=== PATIENT | female | born 1960 | race Hispanic/Latino ===

== ENCOUNTER → 2019-04-24 | Outpatient (CLI) | payer BC ==
[~2019-04-24] MED LIST: GADODIAMIDE 10 MMOL/20 ML VIAL IV ONE
== END | disposition home or self-care (01) ==
LOC: RAH 09:07
PROVIDERS: ATTEND Internal Medicine Gastroenterology
DX: R16.0 Hepatomegaly, not elsewhere classified (principal); K82.8 Other specified diseases of gallbladder
CPT/HCPCS: 74183; A9579

== ENCOUNTER 2019-07-01 08:51 | Day surgery (SDC) | payer BC ==
[2019-07-01 09:31] LABS: BASOPHILS % (AUTO) 0.5 % (0.0-5.0); EOSINOPHILS % (AUTO) 3.5 % (0.0-8.0); HEMATOCRIT 40.9 % (36-48); LYMPHOCYTES % (AUTO) 24.6 % (21.0-51.0); MEAN CORPUSCULAR HEMOGLOBIN 30.5 pg (27.0-33.0); MEAN CORPUSCULAR HGB CONC 34.3 g/dL (32.0-36.0); MEAN CORPUSCULAR VOLUME 88.9 fL (79-99); MONOCYTES % (AUTO) 7.3 % (3.0-13.0); NEUTROPHILS % (AUTO) 64.1 % (40.0-77.0); PLATELET COUNT (AUTO) 161 K/uL (130-400); RED CELL DISTRIBUTION WIDTH 13.6 % (11.0-15.5); WHITE BLOOD COUNT (AUTO) 7.8 K/uL (4.8-10.8)
[2019-07-01 09:41] LABS: CREATININE 0.6 mg/dL (0.5-1.5); POTASSIUM 3.8 mmol/L (3.5-5.1)
[2019-07-01 09:42] LABS: INR 0.99 (0.85-1.15); PARTIAL THROMBOPLASTIN TIME 26.8 SEC (26.3-35.5); PROTHROMBIN TIME 10.4 SEC (9.6-11.6)
[2019-07-01 09:46] LABS: ALBUMIN 3.4 g/dL (3.5-5.0); BILIRUBIN,TOTAL 0.4 mg/dL (0.2-1.0); TOTAL PROTEIN, SERUM 7.6 g/dL (6.0-8.3)
[2019-07-01] MEDS ORDERED: FENTANYL CITRATE PF 50 MCG/1 ML 2ML VIAL ONE (10:01)
[2019-07-01] MEDS ORDERED: MIDAZOLAM HCL 1 MG/ML 2ML VIAL ONE (10:01)
[2019-07-01] MEDS ORDERED: SODIUM CHLORIDE 0.9% 1000ML 1,000 ML IV ONE (10:09)
--- NOTE | 2019-07-01 10:53 | NUR ---
U/S GUIDED BIOPSY OF LIVER PROCEDURE PERFORMED BY DR. LAZO. PUNCTURE SITE EPIGASTRIC REGION. PATIENT TOLERATED PROCEDURE WELL. SPECIMEN X 3 COLLECTED. END OF PROCEDURE AT 1058. FLOSEAL INJECTED TO SITE WHILE BIOPSY NEEDLE REMOVED AND DRESSING APPLIED. NO BLEEDING NOTED. CALLED REPORT TO [facility] DAY PATENT NURSE. PT TRANSFERRED TO DAYPATIENT VIA STRETCHER. PT STABLE, AAO X 3, WITH NO C/O PAIN.
--- NOTE | 2019-07-01 11:25 | NUR ---
PATIENT RETURNED PATIENT BROUGHT BACK TO DAY PATIENT FROM RADIOLOGY. BANDAID TO EPIGASTRIC AREA IS DRY AND INTACT. AAOX3, RESPIRATIONS UNLABORED, VITAL SIGNS STABLE, PATIENT C/O DISCOMFORT TO AREA WHERE BIOPSY/PUNCTURE WAS DONE. SIDERAILS UP X2, BED IN LOWEST POSITION, CALL OSORIO IN REACH. SPOUSE AT BEDSIDE.
--- NOTE | 2019-07-01 13:25 | NUR ---
CALL DR. BACK PT. C/O OF PAIN TO UPPER GASTRIC AREA. ORDER IS TO GIVE 2 TYLENOL #3 ONCE , PO. PATIENT LEVEL OF PAIN IS 8 OUT 10 ON PAIN SCALE.
[2019-07-01] MEDS ORDERED: ACETAMINOPHEN-CODEINE 300/30MG TAB ONE (13:34)
--- NOTE | 2019-07-01 13:35 | NUR ---
DR. HURTADO CAME TO EVALUATE PATIENT. NO FURTHER ORDERS AT THIS TIME.
[2019-07-01 14:30] VITALS: BP 146/72
--- NOTE | 2019-07-01 14:38 | NUR ---
PT LEFT VIA WHEELCHAIR IN PVT CAR WITH . PT. STABLE NO COMPLICATION UPON D/C, D/C INSTRUCTIONS GIVEN TO
[2019-07-01] MEDS ORDERED: ACETAMINOPHEN-CODEINE 300/30MG TAB PO ONE (14:50)
== END 2019-07-01 14:40 ==
LOC: DAH 08:51
PROVIDERS: ATTEND Internal Medicine Gastroenterology
DX: R94.5 Abnormal results of liver function studies (principal); K75.81 Nonalcoholic steatohepatitis (NASH); K74.69 Other cirrhosis of liver; K21.0 Gastro-esophageal reflux disease with esophagitis; I10 Essential (primary) hypertension; E11.9 Type 2 diabetes mellitus without complications; E78.5 Hyperlipidemia, unspecified; E66.9 Obesity, unspecified; Z68.35 Body mass index [BMI] 35.0-35.9, adult; Z72.89 Other problems related to lifestyle; Z79.84 Long term (current) use of oral hypoglycemic drugs; Z79.899 Other long term (current) drug therapy; Z98.890 Other specified postprocedural states
CPT/HCPCS: 36415; 47000; 76942; 80053; 82948 ×2; 85025; 85610; 85730; 88307; A4215 ×3; A4221; A4222; A4223; A4663; C2615; J2250; J3010; J7030; 99152; 99153

== ENCOUNTER 2019-07-07 12:33 | Emergency (ER) | payer BC ==
[2019-07-07 13:07] LABS: BASOPHILS % (AUTO) 0.3 % (0.0-5.0); EOSINOPHILS % (AUTO) 3.9 % (0.0-8.0); HEMATOCRIT 40.2 % (36-48); LYMPHOCYTES % (AUTO) 21.1 % (21.0-51.0); MEAN CORPUSCULAR HEMOGLOBIN 30.5 pg (27.0-33.0); MEAN CORPUSCULAR HGB CONC 34.3 g/dL (32.0-36.0); MEAN CORPUSCULAR VOLUME 88.8 fL (79-99); NEUTROPHILS % (AUTO) 68.7 % (40.0-77.0); PLATELET COUNT (AUTO) 180 K/uL (130-400); RED BLOOD CELL COUNT(AUTO) 4.53 MIL/uL (4.00-5.50); RED CELL DISTRIBUTION WIDTH 13.9 % (11.0-15.5); WHITE BLOOD COUNT (AUTO) 9.1 K/uL (4.8-10.8)
[2019-07-07 13:21] LABS: INR 0.97 (0.85-1.15); PARTIAL THROMBOPLASTIN TIME 27.4 SEC (26.3-35.5); PROTHROMBIN TIME 10.2 SEC (9.6-11.6)
[2019-07-07 14:36] LABS: APPEARANCE,URINE Clear (CLEAR); BILIRUBIN,URINE Negative (NEGATIVE); COLOR,URINE Yellow (YELLOW); GLUCOSE, URINE (UA) >=1000 mg/dL (NEGATIVE); KETONES,URINE Negative (NEGATIVE); LEUKOCYTE ESTERASE ,URINE Negative (NEGATIVE); NITRATE,URINE Negative (NEGATIVE); OCCULT BLOOD,URINE Negative (NEGATIVE); PROTEIN,URINE Negative (NEGATIVE)
[2019-07-07 14:46] LABS: CREATININE 0.6 mg/dL (0.5-1.5); POTASSIUM 3.9 mmol/L (3.5-5.1)
[2019-07-07 14:52] LABS: ALBUMIN 3.6 g/dL (3.5-5.0); BILIRUBIN,TOTAL 0.5 mg/dL (0.2-1.0); TOTAL PROTEIN, SERUM 7.4 g/dL (6.0-8.3)
[2019-07-07] MEDS ORDERED: TRAMADOL HCL 50 MG TABLET ONE (15:38)
[2019-07-07] MEDS ORDERED: SODIUM CHLORIDE 0.9% 1000ML 1,000 ML IV ONE (15:38)
== END 2019-07-07 17:06 | disposition home or self-care (01) ==
LOC: EDH 12:33
DX: E11.65 Type 2 diabetes mellitus with hyperglycemia (principal); R10.10 Upper abdominal pain, unspecified; I10 Essential (primary) hypertension; Z98.890 Other specified postprocedural states
CPT/HCPCS: 36415; 71045; 74176; 80053; 81003; 82150; 82550; 83690; 84484; 85025; 85610; 85730; 93005; 96360; 99285; J7030

== ENCOUNTER → 2021-12-21 | Outpatient (CLI) | payer BC | END | disposition home or self-care (01) | LOC: RAH 10:04 | PROVIDERS: ATTEND Family Medicine | DX: K80.20 Calculus of gallbladder without cholecystitis without obstruction (principal); R16.0 Hepatomegaly, not elsewhere classified; R94.5 Abnormal results of liver function studies | CPT/HCPCS: 76700 ==

== ENCOUNTER → 2022-01-11 | Outpatient (CLI) | payer BC | END | disposition home or self-care (01) | LOC: RAH 07:31 | PROVIDERS: ATTEND Internal Medicine Gastroenterology | DX: R11.2 Nausea with vomiting, unspecified (principal); R68.81 Early satiety | CPT/HCPCS: 78264; A9541 ==

== ENCOUNTER → 2022-06-19 | Outpatient (CLI) | payer BC | END | disposition home or self-care (01) | LOC: RAH 09:27 | PROVIDERS: ATTEND Internal Medicine | DX: Z12.31 Encounter for screening mammogram for malignant neoplasm of breast (principal) | CPT/HCPCS: 77067 ==

== ENCOUNTER → 2022-10-09 | Outpatient (CLI) | payer BC | END | disposition home or self-care (01) | LOC: RAH 10:27 | PROVIDERS: ATTEND Internal Medicine | DX: K74.69 Other cirrhosis of liver (principal); N20.0 Calculus of kidney; Z90.49 Acquired absence of other specified parts of digestive tract | CPT/HCPCS: 76705 ==

== ENCOUNTER → 2022-10-09 | Outpatient (CLI) | payer BC | END | disposition home or self-care (01) | LOC: RAH 09:22 | PROVIDERS: ATTEND Internal Medicine | DX: I87.1 Compression of vein (principal) | CPT/HCPCS: 76856 ==

== ENCOUNTER → 2024-02-12 | Outpatient (CLI) | payer BC | END | disposition home or self-care (01) | LOC: RAH 08:39 | PROVIDERS: ATTEND Internal Medicine | DX: I34.81 Nonrheumatic mitral (valve) annulus calcification (principal); K74.69 Other cirrhosis of liver; Z90.49 Acquired absence of other specified parts of digestive tract | CPT/HCPCS: 76700; 93306 ==

== ENCOUNTER → 2024-05-21 | Outpatient (CLI) | payer BC | END | disposition home or self-care (01) | LOC: RAH 16:20 | PROVIDERS: ATTEND Internal Medicine | DX: Z12.31 Encounter for screening mammogram for malignant neoplasm of breast (principal); R92.333 Mammographic heterogeneous density, bilateral breasts | CPT/HCPCS: 77067 ==

== ENCOUNTER 2025-05-14 08:41 | Observation (INO) | payer BC ==
[~2025-05-14] VITALS: Ht 147.3 cm; Wt 71.7 kg
[2025-05-14] MEDS: 0.9% NACL 500ML IV.SOLN 500 ML IV ONE (09:01)
--- NOTE | 2025-05-14 09:01 | EKG ---
[facility] Test Date: 2025-05-14 Test Time: 08:55:46 Pat Name: MARIA ANTONIA AMBROSE Department: ED Room: Gender: F [employer]: [id number] : 1960 Requested By: FARRAH BARTON Order Number: [id number] Reading MD: Mireille Yi Measurements Intervals [place] Rate: 86 P: 57 PA: 195 QRS: 14 QRSD: 101 T: -9 QT: 410 QTc: 490 Interpretive Statements Sinus rhythm Compared to ECG 07/07/2019 13:03:16 No significant changes Electronically Signed On 05-14-2025 13:13:19 CDT by Mireille Yi Please click the below link to view image of tracing.
[2025-05-14 09:10] LABS: IMMATURE GRANULOCYTE ABSOLUTE 0.02 K/uL (0-1); NUCLEATED RED BLOOD CELLS 0.0 % (0.0-0.19); PLATELET COUNT (AUTO) 89 K/uL (130-400); RED BLOOD CELL COUNT(AUTO) 3.74 MIL/uL (4.00-5.50); RED CELL DISTRIBUTION WIDTH 15.0 % (11.0-15.5); WHITE BLOOD COUNT (AUTO) 6.1 K/uL (4.8-10.8)
[2025-05-14 09:21] LABS: CREATININE 1.1 mg/dL (0.5-1.0); GLOMERULAR FILTR. RATE CALC 56.0 mL/min (>90); GLUCOSE,RANDOM 168.0 mg/dL (70-105); SODIUM SERUM 139.0 mmol/L (136-145); UREA NITROGEN, BLOOD 19.0 mg/dL (7-18)
[2025-05-14 09:25] LABS: ASPARTATE AMINOTRANSFERASE 58.0 U/L (10-37); TOTAL PROTEIN, SERUM 7.0 g/dL (6.0-8.3)
--- NOTE | 2025-05-14 10:18 | ERN ---
General Chief Complaint: Multiple Complaints Stated Complaint: N/V WITH DIZZINESS AND CHEST PAIN Time Seen by MD: 08:45 History of Present Illness Initial Comments 64-year-old female with a past medical history of liver cirrhosis being evaluated for liver transplant, neuropathic, diabetes mellitus, heart murmur presented with a chief complaint of chest pain which started last night. She explain her chest pain as a heaviness without radiation and no aggravating and relieving factor. She failed this chest pain was something different in terms of severity and duration than the prior episode. She also complained of fatigue for last couple of days. She said she has cloudy urine without any urinary symptoms. She did not complain of shortness of breathing, fever, burning urine, increased urinary frequency, abdominal pain, palpitation, nausea and vomiting Allergies: Coded Allergies: No Known Drug Allergies (Unverified Allergy, Unknown, 07/01/19) Home Meds No Active Prescriptions or Reported Meds Past Medical History Past Medical History: Diabetes-Type II, Heart Disease, Liver Disease Past Surgical History: Hysterectomy ROS Dictation CONSTITUTIONAL: No chills, no fever, no diaphoresis, no malaise, weakness present HEAD/FACE: No signs of trauma. EENT: No eye pain, no blurred vision, no tearing, no double vision, no ear pain, no ear discharge, no nose pain, no nasal congestion, no throat pain, no throat swelling, no mouth pain. RESPIRATORY: No cough, no orthopnea, no stridor, wheezing. Shortness of breath present CARDIOVASCULAR: Chest pain and edema present. no palpitations, no syncope. GASTROINTESTINAL/ABDOMINAL: No abdominal pain, no constipation, no diarrhea, no nausea, no vomiting. GENITOURINARY: No abnormal discharge, no dysuria, no frequent urination, no hematuria. No complaints of pain in the genitals. MUSCULOSKELETAL: Back pain present. no gout, no joint pain, no joint swelling, no muscle pain, no muscle stiffness, no neck pain. INTEGUMENTARY: No change in color, no change in hair/nails, no dryness, no lesion, no lumps, no rash. NEUROLOGICAL/PSYCH: No anxiety, not depressed, no emotional problem, no headache, no numbness, no pre-existing deficit, no history of seizures, no tremors, no weakness. HEMATOLOGIC/LYMPHATIC: Not anemic, no history of blood clots, no apparent ble eding, no bruising, glands not swollen. Physical Exam Physical Exam Dictation GENERAL APPEARANCE: Alert, oriented x3, no acute distress, obese. HEAD AND FACE: Non-traumatic. EYES: PERRL, pink conjunctivas, eyelid no trauma, anterior chamber clear. EARS: Pinnas intact and no signs of trauma or erythema. Ear canals clear and no discharge. TMs no erythema. NOSE: No discharge, no bleeding. OROPHARYNX: Mouth normal, teeth no caries, tongue pink. Pharynx clear, no eryt nedra. Tonsils no exudates, no abscesses noted. Mucous membrane moist. NECK: Supple, non-tender, no thyromegaly, no masses, no JVD, no bruits. BREAST: Deferred. CHEST: No tenderness, no crepitus, no paradoxical movement, no retractions. LUNGS: Clear, well-ventilated, symmetric, no rales, wheezing, no rhonchi, no stridor, good breath sounds bilaterally. HEART: Ejection murmur radiating to bilateral carotid artery, S1-S2 heard. VASCULAR: Bilateral pitting edema present ABDOMEN: Mild epigastric tenderness present. Soft, positive bowel sounds, nondistended RECTAL: Deferred. GENITAL: Deferred. NEUROLOGICAL: Normal speech, gross motor function intact, gross sensory function intact. MUSCULOSKELETAL: Neck nontender, full range of motion, back nontender, full range of motion. EXTREMITIES: Nontender, full range of motion. SKIN: Color pink, dry, no turgor, no rash, no lacerations, no abrasions, no contusions. Results Laboratory and Microbiology Lab and Micro Result Laboratory Tests Test 05/14/25 08:56 05/14/25 10:02 05/14/25 10:34 White Blood Count 6.1 K/uL (4.8-10.8) Red Blood Count 3.74 MIL/uL (4.00-5.50) L Hemoglobin 12.7 g/dL (12.0-16.0) Hematocrit 36.3 % (36-48) Mean Corpuscular Volume 97.1 fL (79-99) Mean Corpuscular Hemoglobin 34.0 pg (27.0-33.0) H Mean Corpuscular Hemoglobin Concent 35.0 g/dL (32.0-36.0) Red Cell Distribution Width 15.0 % (11.0-15.5) Platelet Count 89 K/uL (130-400) L Mean Platelet Volume 11.4 fL (7.5-10.5) H Immature Granulocyte % (Auto) 0.3 % (0-1) Neutrophils (%) (Auto) 63.5 % (40.0-77.0) Lymphocytes (%) (Auto) 19.1 % (21.0-51.0) L Monocytes (%) (Auto) 12.5 % (3.0-13.0) Eosinophils (%) (Auto) 3.9 % (0.0-8.0) Basophils (%) (Auto) 0.7 % (0.0-5.0) Neutrophils # (Auto) 3.9 K/uL (1.8-7.7) Lymphocytes # (Auto) 1.2 K/uL (1.0-4.8) Monocytes # (Auto) 0.8 K/uL (0.1-1.0) Eosinophils # (Auto) 0.24 K/uL (0.00-0.70) Basophils # (Auto) 0.04 K/uL (0.00-0.20) Absolute Immature Granulocyte (auto 0.02 K/uL (0-1) Nucleated Red Blood Cells 0.0 % (0.0-0.19) Sodium Level 139 mmol/L (136-145) Potassium Level 4.4 mmol/L (3.5-5.1) Chloride Level 100 mmol/L (101-111) L Carbon Dioxide Level 28 mmol/L (21-32) Blood Urea Nitrogen 19 mg/dL (7-18) H Creatinine 1.1 mg/dL (0.5-1.0) H Glomerular Filtration Rate Calc 56 mL/min (>90) Random Glucose 168 mg/dL (70-105) H Total Calcium 9.7 mg/dL (8.5-10.1) Total Bilirubin 3.8 mg/dL (0.2-1.0) H Direct Bilirubin 2.3 mg/dL (0.0-0.3) H Aspartate Amino Transf (AST/SGOT) 58 U/L (10-37) H Alanine Aminotransferase (ALT/SGPT) 39 U/L (12-78) Alkaline Phosphatase 341 U/L (50-136) H Troponin I High Sensitivity 8 ng/L (4-50) Total Protein 7.0 g/dL (6.0-8.3) Albumin 2.5 g/dL (3.5-5.0) L Ammonia 83 umol/L (11-32) H Lipase 149 U/L (16-77) H Urine Color YELLOW (YELLOW) Urine Appearance CLOUDY (CLEAR) H Urine pH 5.5 (5.0-8.0) Urine Specific [place] 1.023 (1.001-1.031) Urine Protein NEGATIVE mg/dL (NEGATIVE) Urine Glucose (UA) >=1000 mg/dL (NEGATIVE) H Urine Ketones NEGATIVE mg/dL (NEGATIVE) Urine Occult Blood +- (TRACE) (NEGATIVE) H Urine Nitrate 2+ (NEGATIVE) H Urine Bilirubin NEGATIVE mg/dL (NEGATIVE) Urine Urobilinogen 0.2 mg/dL (0.2-1.0) Urine Leukocyte Esterase NEGATIVE [place]/uL Urine RBC 2-5 /HPF (0-1) H Urine WBC 2-5 /HPF (0-1) H Urine Squamous Epithelial Cells RARE /HPF (0-2) Urine Bacteria Many /HPF (None Seen) H MDM MDM: Differential diagnosis: Rationale: Tests considered and ordered secondary to shared decision making include: labs, ECG and radiology Previous outside records reviewed: Old ER visits. Risk of complication and/or morbidity or mortality of patient management: None Medications-Per medication reconciliation Need for hospitalization: Patient does meet criteria for hospitalization. Need for emergency major/minor surgery: No There are no social concerns with this patient. Prescription drug management Prescriptions will include symptomatic care Patient's prior external medical records from other ER visits were reviewed by me as indicated. Prior testing and results from previous visits were reviewed. Prior tests were taken into account with medical decision making and resource utilization, independent historian/historians were used to obtain complete medical history. I independently interpreted the test that were performed, results were reviewed by me and considered findings on radiology if ordered. Medical management and examination interpretation discussions were had by me with other qualified healthcare professionals as indicated for the patient's care. 64-year-old female history of cirrhosis, is on transplant list for possible liver transplant patient presenting with generalized weakness nausea no current abdominal pain labs revealed elevated levels of ammonia admitting for further care and evaluation no clear source of infection at this time ED Course Orders Procedure Category Date Status Time 12 Lead Ekg Tracing- EKG 05/14/25 Resulted Technical 08:48 Cbc With Differential LAB 05/14/25 Complete 08:48 Basic Metabolic Panel LAB 05/14/25 Complete 08:48 Hepatic Function Panel LAB 05/14/25 Complete 08:48 Troponin I High LAB 05/14/25 Complete Sensitivity 08:48 Chest 1vw RAD 05/14/25 Resulted 08:48 Ct Head/Brain W/O CT 05/14/25 Resulted Contrast 08:48 Ondansetron 4mg Inj PHA 05/14/25 Complete (Zofran 4mg Inj) 09:00 0.9% Nacl 500ml PHA 05/14/25 Complete Iv.Soln (Ns 500ml 09:00 Urinalysis LAB 05/14/25 Complete W/Microscopic 09:56 Ammonia LAB 05/14/25 Complete 09:56 Lipase LAB 05/14/25 Complete 09:56 Culture Urine LAKEISHA 05/14/25 In Process 11:48 Lactulose 20 Gm/30 Ml PHA 05/14/25 Complete Udcup (Constulose 13:54 Current Medications Medications (Trade) Dose Ordered Sig/Yluiya Route PRN Reason Start Time Stop Time Status Last Admin Dose Admin Lactulose (Constulose 20gm/ 30ml Udcup) 20 gm ONCE STAT PO 05/14/25 13:54 05/14/25 13:58 DC Ondansetron HCl (zoFRAN 4MG INJ) 4 mg ONCE ONCE IVP 05/14/25 09:00 05/14/25 09:01 DC 05/14/25 09:01 Sodium Chloride 500 ml @ 0 mls/hr ONCE ONCE IV 05/14/25 09:00 05/14/25 09:01 DC 05/14/25 09:01 Vital Signs Date Time Temp Pulse Resp B/P (MAP) Pulse Ox O2 Delivery O2 Flow Rate FiO2 05/14/25 12:25 97.9 83 20 143/62 99 Room Air* 0 21 05/14/25 09:13 98.1 83 12 123/65 99 Room Air* 0 21 05/14/25 08:44 85 16 149/52 98 Room Air 0 DX & DISP Disposition: Inpatient Departure Impression: Primary Impression: Liver cirrhosis secondary to NETTLES Additional Impressions: Chest pain at rest, Weakness generalized Critical Time: 30 minutes Condition: Stable Scripts No Active Prescriptions or Reported Meds Referrals: YENNIFER SHARP MD (PCP) LISSET MOFFETT MD May 14, 2025 10:18 FARRAH BARTON MD May 14, 2025 15:29
--- NOTE | 2025-05-14 10:29 | HMCIMG ---
Exam: NONCONTRAST CT BRAIN REASON: dizzy and vomiting. COMPARISON: None. TECHNIQUE: Images are obtained from vertex to the skull base. The exam was performed without IV contrast. FINDINGS: There is normal appearing brain parenchyma. There are no focal mass lesions. There is is no evidence of intracranial hemorrhage or acute stroke. Ventricles and sulci appear normal. Posterior fossa and brainstem structures are unremarkable. Paranasal sinuses and remaining extracranial soft tissues appear normal as well. IMPRESSION: 1. No acute intracranial process CT was performed with one or more following dose reduction techniques: automated exposure control, adjustment of the mA and kv according to patient's size, or use of a iterative reconstruction technique.
--- NOTE | 2025-05-14 10:32 | HMCIMG ---
CHEST 1VW REASON: cp COMPARISON: Prior chest radiograph from 07/07/2019 is available. FINDINGS: Single view of the chest was obtained. Lungs are clear. Heart size is normal. There is no pulmonary vascular congestion. Mediastinum and bony thorax appear unremarkable. This study is unchanged from prior study. IMPRESSION: 1. Normal single view chest x-ray.
[2025-05-14 11:27] LABS: APPEARANCE,URINE CLOUDY (CLEAR); GLUCOSE, URINE (UA) >=1000 mg/dL (NEGATIVE); LEUKOCYTE ESTERASE ,URINE NEGATIVE Leu/uL (NEGATIVE); NITRATE,URINE 2+ (NEGATIVE); OCCULT BLOOD,URINE +- (TRACE) (NEGATIVE); SQUAMOUS EPITHELIAL CELL,UR RARE /HPF (0-2)
[2025-05-14] MEDS ORDERED: GLUCAGON 1MG KIT 1 MG ML IM PRN (14:30)
[2025-05-14] MEDS ORDERED: DEXTROSE 50%-WATER 50 ML DISP.SYRIN IV PRN (14:30)
--- NOTE | 2025-05-14 16:06 | NUR ---
DCP:HOME Pt currently lives at home with her daughter Susan Diane [phone] and her daughters. Pt does not report using any DME, home health, or provider services. Pt states that she is able to complete ADLs on her own. Pt is still working, states that she works due to needing her insurance for a liver transplant that she is waiting for. PCP is Dr. Naseem Farmer and uses [facility] for any RX needs. At [place] pt will want to go home and family can assist with transportation. Addendum: 05/14/25 at 1609 by SUSAN WORKMAN SS Amended: Links added.
[2025-05-14] MEDS: LACTULOSE 20 GM/30 ML UDCUP PO STA (16:53)
--- NOTE | 2025-05-14 21:07 | NUR ---
REPORT GIVEN TO NURSE LYNCH, ALL QUESTIONS ANSWERED AT THIS TIME.
[2025-05-14 21:30] VITALS: BP 135/64; PULSE 71; RESP 18; TEMP 97.9
[2025-05-14] MEDS: LACTULOSE 20 GM/30 ML UDCUP PO ONE (21:31)
[2025-05-14 22:00] VITALS: O2SAT 99
--- NOTE | 2025-05-14 22:00 | NUR ---
Refusal Patient refused bed alarm, signed refusal form. Educated patient on use of call light and fall risk precautions, verbalized understanding.
[2025-05-14] MEDS ORDERED: METO2.5T2 PO (22:27)
[2025-05-14] MEDS ORDERED: FURO40TA5 PO (22:27)
[2025-05-14] MEDS ORDERED: SPIR50TA5 PO (22:27)
[2025-05-14] MEDS ORDERED: OMEP40CA21 PO (22:27)
[2025-05-14] MEDS ORDERED: RIFA550T PO (22:27)
[2025-05-14] MEDS ORDERED: CETI10TA57 PO (22:27)
[2025-05-14] MEDS ORDERED: EMPA25TA PO (22:27)
[2025-05-14] MEDS ORDERED: ACET-2079 PO (22:27)
[2025-05-15 00:15] VITALS: BP 134/62; PULSE 71; RESP 18; TEMP 97.5
[2025-05-15 03:36] LABS: IMMATURE GRANULOCYTE ABSOLUTE 0.02 K/uL (0-1); NUCLEATED RED BLOOD CELLS 0.0 % (0.0-0.19); PLATELET COUNT (AUTO) 80 K/uL (130-400); RED BLOOD CELL COUNT(AUTO) 3.29 MIL/uL (4.00-5.50); RED CELL DISTRIBUTION WIDTH 14.9 % (11.0-15.5); WHITE BLOOD COUNT (AUTO) 5.6 K/uL (4.8-10.8)
[2025-05-15 04:07] VITALS: BP 135/65; PULSE 75; RESP 16; TEMP 97.6
[2025-05-15 04:13] LABS: ASPARTATE AMINOTRANSFERASE 50.0 U/L (10-37); CREATININE 1.1 mg/dL (0.5-1.0); GLOMERULAR FILTR. RATE CALC 56.0 mL/min (>90); GLUCOSE,RANDOM 158.0 mg/dL (70-105); SODIUM SERUM 142.0 mmol/L (136-145); TOTAL PROTEIN, SERUM 6.1 g/dL (6.0-8.3); UREA NITROGEN, BLOOD 23.0 mg/dL (7-18)
[2025-05-15 07:30] VITALS: O2SAT 99
[2025-05-15 07:48] VITALS: BP 142/66; PULSE 73; RESP 18; TEMP 97.9
[2025-05-15] MEDS: EMPAGLIFLOZIN 25MG TABLET PO SCH (09:46)
[2025-05-15] MEDS: RIFAXIMIN 550 MG TABLET PO SCH (09:46)
[2025-05-15] MEDS: SPIRONOLACTONE 25 MG TAB PO SCH (09:46)
[2025-05-15 11:31] VITALS: BP 147/66; PULSE 72; RESP 18; TEMP 98.1
--- NOTE | 2025-05-15 16:30 | NUR ---
DISCHARGE PT PIC DC'D PT VERBALIZED UNDERSTANDING OF DISCHARGE INSTRUCTIONS PT HAD NO FURTHER QUESTIONS AT TIME OF DISCHARGE PT AND DAUGHTER GATHERED AND TOOK ALL BELONGINGS
--- NOTE | 2025-05-15 17:37 | HP ---
HISTORY OF PRESENT ILLNESS: The patient came to the Emergency Room complaining of generalized body weakness, malaise. No chest pain. No shortness of breath. No lower extremity edema. ALLERGIES: None. PAST MEDICAL HISTORY: Type 2 diabetes, hypertension, dyslipidemia, liver cirrhosis, hepatic cell carcinoma status post recent procedure at [facility] pending records. REVIEW OF SYSTEMS: No fever, chills, seizures, loss of consciousness. No chest pain, palpitations, or dizziness. No nausea, vomiting, or diarrhea. No dysuria, urgency, or frequency. No rashes, petechiae or ecchymosis. No hallucinations or delusions. No suicidal ideation. PHYSICAL EXAMINATION: GENERAL: She is awake, alert, and oriented in person, time and place. Not in distress. VITAL SIGNS: Vital signs in the chart. HEENT: Normocephalic, atraumatic. LUNGS: Clear to auscultation. HEART: S1 and S2 are distant. ABDOMEN: Soft, nontender. EXTREMITIES: No clubbing, cyanosis, or edema. LABORATORY DATA: WBC count 6.1, hemoglobin 12.7, platelets 89,000. Sodium 139, potassium 4.4, BUN 19, creatinine 1.1. Total bilirubin 3.8, direct bilirubin 2.3, ammonia 83, lipase 149. Urinalysis positive for nitrite, WBC 225. Troponin levels were 8. ASSESSMENT AND PLAN: Generalized body weakness with increasing ammonia levels and mild increase in lipase. Negative troponin. The patient will be admitted after started on lactulose in spite of the patient being compliant with her Xifaxan. Reassess with results. Plan to discharge if stable. Chest pain: The patient denies any chest pain during my interview. No shortness of breath. Troponin has been within normal limits. EKG reading reports no significant changes. Type 2 diabetes, controlled. Hypertension, controlled. Dyslipidemia, controlled. Liver cirrhosis with hepatic encephalopathy, ascites, and hyperbilirubinemia. Continue to monitor. Hepatic cell carcinoma, being followed by MD Moore. Continue to monitor. The patient will be discharged if stable later today. TID: [id number] RECEIPT: [id number]
== END 2025-05-15 17:18 | disposition home or self-care (01) ==
LOC: EDH 08:41 → EDHIP 14:01 → 1MS 21:19
PROVIDERS: ADMIT Internal Medicine; ATTEND Internal Medicine
DX: R07.89 Other chest pain (principal); K74.60 Unspecified cirrhosis of liver; R42 Dizziness and giddiness; K76.82 Hepatic encephalopathy; R18.8 Other ascites; R53.1 Weakness; I10 Essential (primary) hypertension; E78.5 Hyperlipidemia, unspecified; E11.9 Type 2 diabetes mellitus without complications; C22.0 Liver cell carcinoma; Z90.710 Acquired absence of both cervix and uterus; Z79.899 Other long term (current) drug therapy; Z98.890 Other specified postprocedural states
CPT/HCPCS: 96374; 96372 ×2; 96361; 80076; 84484; 80048; 82140 ×2; 83690; 85025 ×2; 87086 ×2; 87186; 82948 ×3; 81001; 36415 ×2; 71045; 70450; 99291; 93005; 80053; J2405; G0378 ×4